=== PATIENT | male | born 1945 | race Caucasian/White ===

== ENCOUNTER 2016-12-01 08:06 | Observation (INO) | payer OTHER ==
[~2016-12-01] VITALS: Ht 182.9 cm; Wt 86.2 kg
[~2016-12-01 08:06] MED LIST: ASPIRIN CHILDRE81 MG PO; BACLOFEN10 M1 PO; DEXILANT60 M1 PO; EPIPEN 2-P0.3 MG/0.3; LIPITOR20 M2 PO; LORAZEPAM1 MG PO; LOSARTAN POTASS50 MG PO; LYRICA150 M1 PO; MELOXICAM15 MG PO; NORVASC 10MG10 MG PO; NORVASC 5MG TAB5 MG PO; OXYCODONE HCL15 M1 PO; PAXIL10 M1 PO; SUCRALFATE1 GM
--- NOTE | 2016-12-01 08:14 | ED CARDIAC/CP/PALPITATIONS ---
History of Present Illness General Chief Complaint: Chest Pain Stated Complaint: CHEST PAIN FOR A WEEK Source: patient, family Exam Limitations: no limitations Vital Signs & Intake/Output Vital Signs & Intake/Output Vital Signs Date Time Temp Pulse Resp B/P Pulse O2 O2 Flow FiO2 Ox Delivery Rate 12/02 1000 98.1 68 18 124/84 12/02 1000 98.1 68 18 124/84 ED Intake and Output 12/03 0000 12/02 1200 Intake Total 50 Output Total 400 Balance -350 Intake, Oral 50 Output, Urine 400 Patient 190 lb Weight Allergies Coded Allergies: Penicillins (RASH 12/01/16) Sulfa (Sulfonamide Antibiotics) (RASH 12/01/16) ciprofloxacin (From CIPRO) (RASH 12/01/16) Triage Note: PT BIBA FROM HOME FOR C/O CHEST PAIN X1 WEEK. PT WITH HX OF ANXIETY AND INCREASED PAIN WITH MOVEMENT. PT STATES HE NEEDS TO BE CATHETERIZED BECAUSE HE HAD A PROCEDURE LAST WEEK AND HE IS HAVING DIFFICULTY URINATING. PT HR 59 NSR. PT WAS PUT ON MEDS FOR HIS SHAKING AND STATES HE WENT TO SEE HIS PCP AND WAS TOLD TO STOP ALL HIS BP MEDS BECAUSE HIS READING WERE LOW. PT STATES HE SHOVELED SNOW YESTERDAY AND HE FELT PRESSURE IN HIS CHEST BUT THIS AM IT JUST GOT WORSE WITH HIS ANXIETY. Triage Nurses Notes Reviewed? yes Onset: Gradual Duration: intermittent (1 WEEK) Timing: no prior history Quality/Severity: moderate Location: central Radiation: no radiation Activities at Onset: none Nitro Today/Relief: 0.4 mg x 1, provided by EMS, mild relief Aspirin Today: 81 mg x 4 HPI: Patient is a 71-year-old male with history of hypertension, BPH, anxiety presenting to the emergency department with chief complaint of intermittent chest pain has been going on for the past one week. He reports that episodes come and go. He also has associated dyspnea. Denies any recent upper respiratory congestion or cough. No fevers or chills. Denies nausea or vomiting or abdominal pain. No change in bowel habits. Denies change in urinary habits. The pain worsened over the past 2 hours so he decided to come in for evaluation. He took one baby aspirin this morning when he woke up, the ambulance gave him 3 more. He was also given 1 sublingual nitroglycerin. He reports that this pain went from severe to mild since receiving medications. Denies any arm pain or jaw pain. He does report anxiety. He takes daily medication to help with anxiety. (SAE GARNER) Reconcile Medications Alfuzosin HCl (Alfuzosin HCl ER) 10 MG TAB.ER.24H 1 TAB PO DAILY UNKNOWN ( Reported) Amlodipine Besylate (Norvasc) 5 MG TABLET 1 TAB PO DAILY HEART (Reported) Atorvastatin Calcium (Lipitor) 20 MG TABLET 1 TAB PO DAILY CHOLESTEROL ( Reported) Baclofen 10 MG TABLET 1 TAB PO Q6-8 PAIN (Reported) Epinephrine (Epipen 2-Edgardo) 0.3 MG/0.3 ML AUTO.INJCT ALLERGIC REACTION (Reported ) Hydroxyzine Pamoate 50 MG CAPSULE 1 CAP PO 4 TIMES/DAY UNKNOWN (Reported) Lorazepam 0.5 MG TABLET 1 TAB PO BID PRN ANXIETY (Reported) Metoprolol Succinate 25 MG TAB 1 TAB PO DAILY HEART (Reported) Mirabegron (Myrbetriq) 25 MG TAB.ER.24H 2 TAB PO DAILY BLADDER (Reported) Mth/Me Blue/Sod Phos/Phen/Hyos (Uribel Capsule) 118-10-36 CAPSULE 1 CAP PO UNKNOWN (Reported) Oxycodone HCl 15 MG TABLET 1 TAB PO 4XDP PRN PAIN (Reported) Pregabalin (Lyrica) 150 MG CAPSULE 1 CAP PO TID NEUROPATHY (Reported) (JOSE ADAMS,JESSIE) Past History Travel History Traveled to [place] past 21 day No Medical History Any Pertinent Medical History? 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 No (SAE GARNER) Review of Systems Review of Systems Constitutional: Reports: see HPI. Comments Review of systems: See HPI, All other systems negative. Constitutional, no chills fever or weight loss HEENT: No visual changes no sore throat no congestion Cardiovascular: No orthopnea or ankle swelling Skin, no jaundice no rashes Respiratory: No cough sputum or hemoptysis GI: No nausea no vomiting : No dysuria No hematuria Muscle skeletal: no back pain, no neck pain, Neurologic: No numbness no confusion Psych: No stress anxiety or depression,. Heme/endocrine: No bruising no bleeding no polyuria or polydipsia Immunology: No splenectomy or history of AIDS (ERMELINDA GASTELUM,SAE) Physical Exam Physical Exam General Appearance: alert, awake, anxious Cardiovascular: NSR Comments: Well-developed well-nourished person in no acute distress HEENT: Pupils equally round and reactive to light and accommodation. Nose is atraumatic. Neck: Supple, no lymphadenopathy, normal range of motion without pain or tenderness Back: Nontender Cardiovascular: Regular rate and rhythms no murmurs rubs or gallops, normal JVP Respiratory: Chest nontender. No respiratory distress.breath sounds diminished to auscultation bilaterally Abdomen: Soft, nontender nondistended, no appreciable organomegaly. Normal bowel sounds. No ascites, no rebound or guarding Extremity: No edema, no calf tenderness to palpation, normal and equal pulses. Neuro: Alert oriented x3, motor sensory normal, cranial nerves II through XII grossly intact. Skin: No appreciable rash on exposed skin, skin is warm and dry. Psych: Appears anxious, extremities are tremulous Core Measures ACS in differential dx? Yes Severe Sepsis Present: No Septic Shock Present: No (SAE GARNER) Progress Differential Diagnosis: acs, UNSTABLE ANGINA, STABLE ANGINA, PANIC ATTACK, GENERALIZED ANXIETY DISORDER, PANCREATITIS, GASTRITIS, PNEUMONIA Plan of Care: Orders Procedure Date/time Status Discharge Patient 12/02 UNK Active Diagnostic Imaging: Viewed by Me: Radiology Read. Discussed w/RAD: Radiology Read. Radiology Impression: PATIENT: ADEOLA ADKINS PRESENT AGE: 71 PATIENT ACCOUNT NO: [id number] : 47 LOCATION: [facility] [place] ORDERING PHYSICIAN: SAE GASTELUM SERVICE DATE: 12/01/16 EXAM TYPE: RAD - XRY-CHEST XRAY, PA AND LATERAL EXAMINATION: XR CHEST CLINICAL INFORMATION: Chest pain. Evaluate for cardiomegaly. COMPARISON: 10/16/2016 TECHNIQUE: 2 views of the chest were obtained. FINDINGS: Lungs are well expanded and clear. No pulmonary edema, focal consolidation or pleural effusion. Cardiac silhouette is borderline enlarged. Mediastinal and hilar contours are normal. Intact appearance of the lower cervical spine fusion hardware. No acute skeletal findings. IMPRESSION: Cardiac silhouette is borderline enlarged, but this is unchanged compared to 10/16/2016. No acute cardiopulmonary abnormalities., PATIENT: ADEOLA ADKINS PRESENT AGE: 71 PATIENT ACCOUNT NO: [id number] : 47 LOCATION: [facility] [place] ORDERING PHYSICIAN: SAE GASTELUM SERVICE DATE: 12/01/16 EXAM TYPE: CAT - CTA CHEST-PULMONARY EMBOLISM EXAMINATION: CT ANGIOGRAM OF THE CHEST WITH AND WITHOUT CONTRAST (CT PULMONARY ANGIOGRAM FOR PE) CLINICAL INFORMATION: Reason for Study:
Presumptive Dx: RO PE
Signs Symptoms: SOB, CP
COMPARISON: CT chest dated 07/21/2014. TECHNIQUE: Prior to contrast administration, noncontrast localization images were obtained. Subsequently, multidetector volumetric imaging was performed from the thoracic inlet to below the diaphragms following the administration of 80 mL Omnipaque 350 intravenous contrast. No contrast reaction reported Sagittal, coronal, and MIP oblique sagittal reformatted images were obtained on the CT workstation, uploaded to PACS, and reviewed. Total exam dose-length product 600.72 mGy-cm FINDINGS: QUALITY OF STUDY/CONTRAST BOLUS: Satisfactory. PULMONARY ARTERIES: No central or segmental pulmonary emboli. THORACIC AORTA: Mild atherosclerotic disease with intimal calcification of the aortic arch. LUNG: Stable Calcified 0.3 cm nodule right upper lobe (series 5 image 21) Minor bronchial plugging also noted in the right upper lobe (series 5 image 22-23). Dependent atelectatic reticular changes bilateral lower lobes. PLEURA: No pleural effusion or pneumothorax. MEDIASTINUM: Normal heart size. No pericardial effusion. No hilar or mediastinal lymphadenopathy. No evidence of septal bowing or right heart strain. Mild esophageal distention filled with fluid. Mild esophageal wall thickness noted in the mid to distal esophagus. This represents a new finding. CHEST WALL/AXILLA: No axillary or internal mammary lymphadenopathy. OSSEOUS STRUCTURES: Degenerative changes of the thoracic spine with bridging osteophytes at a few levels demonstrating vacuum degeneration. No acute osseous abnormality. UPPER ABDOMEN: Low-attenuation right hepatic lesion measuring 0.9 cm was also seen on the prior examination compatible with a thymic cyst. It demonstrates slight interval increase in size. No reflux of contrast into the hepatic veins to suggest elevated right heart pressures. IMPRESSION: There is no CTA evidence of acute pulmonary embolism. Stable calcified right upper lobe nodule. Minor bronchial plugging. Mild wall thickness in the mid to distal esophagus with mildly distended and fluid-filled upper to mid esophagus. These represent a new finding. Clinical and endoscopic evaluation recommended. VTE: negative DICTATED BY: ENOCH FUCHS MD DATE/TIME DICTATED:12/01/161034 MED SURG RN:KIET DATE/TIME TRANSCRIBED:12/01/161034 CONFIDENTIAL, DO NOT COPY WITHOUT APPROPRIATE AUTHORIZATION. <Electronically signed in Other Vendor System> SIGNED BY: ENOCH FUCHS MD 12/01/16 1101 Initial ED EKG: SINUS RHYTHM AT 59 BPM AND A BORDERLINE t ABNORMALITIES IN THE ANTERIOR LEADS Prior EKG: unchanged Repeat EKG: unchanged Comments: Patient given sublingual nitroglycerin and aspirin en route. He reports that his pain has improved. Patient will be monitored on the quality assurance monitor body. We will assess for ACS with troponin, EKG unchanged from previous. Patient also appears very anxious. Patient feeling much better after IV Ativan. Still having mild chest pressure. A second sublingual nitroglycerin ordered. Patient informed of all lab work results and imaging study results. No pulmonary embolus. Negative troponin. Patient will be admitted for rule out ACS, observation to telemetry. Dr. Nesbitt will see the patient and admit the patient. D/W DR GARCIA AND SHE AGREES WITH PLAN. (ERMELINDA GASTELUM,SAE) Departure Departure Time of Disposition: 2 Disposition: STILL A PATIENT Condition: Stable Clinical Impression Primary Impression: Chest pain Qualifiers: Chest pain type: unspecified Qualified Code: R07.9 - Chest pain, unspecified Secondary Impressions: Dyspnea Qualifiers: Dyspnea type: unspecified Qualified Code: R06.00 - Dyspnea, unspecified Referrals: KAREN ADAMS,SAI Leahy (PCP/Family) Departure Forms: Customer Survey General Discharge Information Observation Note Spoke With: DELICIA ADAMS,LEONA Physician Advisor Notified: LISA ADAMS,CHELSEA Fernandez Place Patient In: Non-ED OBS Care Area Rationale for Observation: My rational for observation is as follows . Patient requiring serial troponins, EKGs,cardiology consultation, echocardiogram. Discharge at this time and be medically harmful. (SAE GARNER) PA/MASTER MECHANIC Co-Sign Statement Statement: ED Attending supervision documentation- [X] I saw and evaluated the patient. I have also reviewed all the pertinent lab results and diagnostic results. I agree with the findings and the plan of care as documented in the PA's/MASTER MECHANIC's documentation. [X] I have reviewed the ED Record and agree with the PA's/MASTER MECHANIC's documentation. [] Additions or exceptions (if any) to the PAs/MASTER MECHANIC's note and plan are summarized below: [] (JESSIE GARCIA MD) Critical Care Note Critical Care Note Critical Care Time: 30-74 min (SAE GARNER) Absolute Eosinophils 0.1, Absolute Basophils 0, PUBS MCHC 33.3 Departure Departure Time of Disposition: 1232 Disposition: STILL A PATIENT Condition: Stable Clinical Impression Primary Impression: Chest pain Qualifiers: Chest pain type: unspecified Qualified Code: R07.9 - Chest pain, unspecified Secondary Impressions: Dyspnea Qualifiers: Dyspnea type: unspecified Qualified Code: R06.00 - Dyspnea, unspecified Referrals: SAI JONES MD (PCP/Family) Departure Forms: Customer Survey General Discharge Information Observation Note Spoke With: LEONA NESBITT MD Physician Advisor Notified: LISA ADAMS,CHELSEA Fernandez Place Patient In: Non-ED OBS Care Area Rationale for Observation: My rational for observation is as follows . Patient requiring serial troponins, EKGs,cardiology consultation, echocardiogram. Discharge at this time and be medically harmful. (SAE GARNER) PA/MASTER MECHANIC Co-Sign Statement Statement: ED Attending supervision documentation- [X] I saw and evaluated the patient. I have also reviewed all the pertinent lab results and diagnostic results. I agree with the findings and the plan of care as documented in the PA's/MASTER MECHANIC's documentation. [X] I have reviewed the ED Record and agree with the PA's/MASTER MECHANIC's documentation. [] Additions or exceptions (if any) to the PAs/MASTER MECHANIC's note and plan are summarized below: [] (JESSIE GARCIA MD) Critical Care Note Critical Care Note Critical Care Time: 30-74 min (SAE GARNER)
--- NOTE | 2016-12-01 08:30 | NUR ---
PT STATES HE TOOK 5 BABY ASA AT HOME AND WAS GIVEN 324 ASA IN AMBULANCE PT HYPERVENTILATING AND CRYING IN ROOM PT GIVEN ATIVAN IV TO CT SCAN AT THIS TIME
--- NOTE | 2016-12-01 08:42 | NUR ---
PT TO RADIOLOGY
--- NOTE | 2016-12-01 08:42 | NUR ---
PT UNABLE TO VOID HOWEVER HE DID SAY THAT HE URINATED AT HOME JUST SOLE ASSESSOR
--- NOTE | 2016-12-01 08:53 | NUR ---
PT RETURNED FROM RADIOLOGY
[2016-12-01 09:16] LABS: ABSOLUTE BASOPHIL COUNT 0 /CUMM (0.0-0.2); ABSOLUTE EOSINOPHIL COUNT 0.1 /CUMM (0.0-0.7); ABSOLUTE GRANULOCYTE CT 1.8 /CUMM (1.4-6.5); ABSOLUTE LYMPH COUNT 1.9 /CUMM (1.2-3.4); ABSOLUTE MONOCYTE COUNT 0.5 /CUMM (0.10-0.60); BASOPHIL % 0.7 % (0.0-2.0); EOSINOPHIL % 2.8 % (0-5); GRANULOCYTE % 41.1 % (42.2-75.2); HEMATOCRIT 39.9 % (42-52); MEAN CORPUSCULAR HGB 29.5 PG (27.0-31.0); MEAN CORPUSCULAR HGB CONC 33.3 G/DL (33.0-37.0); MEAN CORPUSCULAR VOLUME 88.6 FL (80.0-94.0); MEAN PLATELET VOLUME 7.9 FL (7.4-10.4); PLATELET COUNT 219 /CUMM (130-400); RBC DISTRIBUTION WIDTH 14.4 % (11.5-14.5); RED BLOOD CELL CT 4.51 /CUMM (4.70-6.10); WHITE BLOOD CELL COUNT 4.3 /CUMM (4.8-10.8)
--- NOTE | 2016-12-01 09:20 | RADIOLOGY REPORT ---
EXAMINATION: XR CHEST CLINICAL INFORMATION: Chest pain. Evaluate for cardiomegaly. COMPARISON: 10/16/2016 TECHNIQUE: 2 views of the chest were obtained. FINDINGS: Lungs are well expanded and clear. No pulmonary edema, focal consolidation or pleural effusion. Cardiac silhouette is borderline enlarged. Mediastinal and hilar contours are normal. Intact appearance of the lower cervical spine fusion hardware. No acute skeletal findings. IMPRESSION: Cardiac silhouette is borderline enlarged, but this is unchanged compared to 10/16/2016. No acute cardiopulmonary abnormalities.
[2016-12-01 09:23] LABS: PT 11.8 SEC (9.4-12.5); PTT 31 SEC (25-37)
[2016-12-01] MEDS ORDERED: NORVASC5 M1 PO (09:25)
[2016-12-01] MEDS ORDERED: METOPROLOL SUCC25 M1 PO (09:26)
[2016-12-01] MEDS ORDERED: ALFUZOSIN HCL E10 MG PO (09:28)
[2016-12-01] MEDS ORDERED: LORAZEPAM0.5 M1 PO (09:31)
[2016-12-01] MEDS ORDERED: MYRBETRIQ25 M1 PO (09:32)
[2016-12-01] MEDS ORDERED: HYDROXYZINE PAM50 M1 PO (09:33)
[2016-12-01] MEDS ORDERED: URIBEL CAPSULE1 EACH PO (09:34)
--- NOTE | 2016-12-01 09:59 | NUR ---
PT SINUS ROXANA ON THE MONITOR HR IN THE HIGH 40'S LOW 50'S PA AWARE PT OFFERS NO COMPLAINTS AT THIS TIME
--- NOTE | 2016-12-01 10:24 | NUR ---
PT TO CT SCAN
--- NOTE | 2016-12-01 10:30 | NUR ---
PT RETURNED FROM CAT SCAN REQUESTING HIS DAILY MEDS PA MADE AWARE
--- NOTE | 2016-12-01 11:01 | NUR ---
PT RETURNED FROM CT SCAN HR 59 SINUS ON THE MONITOR REQUESTING HIS PAIN MED AND NED GASTELUM AWARE MEDS ORDRED
--- NOTE | 2016-12-01 11:01 | CT SCAN REPORT ---
EXAMINATION: CT ANGIOGRAM OF THE CHEST WITH AND WITHOUT CONTRAST (CT PULMONARY ANGIOGRAM FOR PE) CLINICAL INFORMATION: Reason for Study:
Presumptive Dx: RO PE
Signs Symptoms: SOB, CP
COMPARISON: CT chest dated 07/21/2014. TECHNIQUE: Prior to contrast administration, noncontrast localization images were obtained. Subsequently, multidetector volumetric imaging was performed from the thoracic inlet to below the diaphragms following the administration of 80 mL Omnipaque 350 intravenous contrast. No contrast reaction reported Sagittal, coronal, and MIP oblique sagittal reformatted images were obtained on the CT workstation, uploaded to PACS, and reviewed. Total exam dose-length product 600.72 mGy-cm FINDINGS: QUALITY OF STUDY/CONTRAST BOLUS: Satisfactory. PULMONARY ARTERIES: No central or segmental pulmonary emboli. THORACIC AORTA: Mild atherosclerotic disease with intimal calcification of the aortic arch. LUNG: Stable Calcified 0.3 cm nodule right upper lobe (series 5 image 21) Minor bronchial plugging also noted in the right upper lobe (series 5 image 22-23). Dependent atelectatic reticular changes bilateral lower lobes. PLEURA: No pleural effusion or pneumothorax. MEDIASTINUM: Normal heart size. No pericardial effusion. No hilar or mediastinal lymphadenopathy. No evidence of septal bowing or right heart strain. Mild esophageal distention filled with fluid. Mild esophageal wall thickness noted in the mid to distal esophagus. This represents a new finding. CHEST WALL/AXILLA: No axillary or internal mammary lymphadenopathy. OSSEOUS STRUCTURES: Degenerative changes of the thoracic spine with bridging osteophytes at a few levels demonstrating vacuum degeneration. No acute osseous abnormality. UPPER ABDOMEN: Low-attenuation right hepatic lesion measuring 0.9 cm was also seen on the prior examination compatible with a thymic cyst. It demonstrates slight interval increase in size. No reflux of contrast into the hepatic veins to suggest elevated right heart pressures. IMPRESSION: There is no CTA evidence of acute pulmonary embolism. Stable calcified right upper lobe nodule. Minor bronchial plugging. Mild wall thickness in the mid to distal esophagus with mildly distended and fluid-filled upper to mid esophagus. These represent a new finding. Clinical and endoscopic evaluation recommended. VTE: negative
--- NOTE | 2016-12-01 11:30 | NUR ---
PT RESTING TO HAVE REPEAT TROP
--- NOTE | 2016-12-01 12:34 | NUR ---
PT GIVEN NITRO SL NEW LINE ESTABLISHED PER PT REQUEST SECOND TROP DRAW AND SENT
--- NOTE | 2016-12-01 13:10 | NUR ---
PT STATES CHEST PRESSURE SUBSIDED AFTER NITRO PA MADE AWARE.
--- NOTE | 2016-12-01 13:28 | History & Physical ---
LO COLEY MD 12/01/16 1317: General Information and HPI Source of Information: patient, family Exam Limitations: no limitations History of Present Illness: Patient is a 71-year-old male with a significant past medical history occipital neuralgia, hypertension, hyperlipidemia, BPH, anxiety, depression, gastritis secondary to NSAID, history of hyponatremia, cervical neck surgery x2 at C5-C6 requiring pain management, chronic pain syndrome, presented with chief complaints of chest pain since 1 week. According to the patient, he was all right 2 weeks ago and he started having upper respiratory tract symptoms, including difficulty with breathing and runny nose for which he started to Dr. moore who prescribed him some nebulization and breathing treatment. He was okay after that. He also having bacteria, urgency for which he had rezum procedure.He was taking Tab Uribel for that. A week ago he had an episode of blacking in front of eyes and he was trying to getting up from the chair. it was associated with the chest pain. He visited to Dr. moore for it,his blood pressure was lower at that time 95/63 and he was advised to stop his propranolol at that time and also told him to stop the amlodipine, but anyhow, he continued it.yesterday he had one episode of chest pain in the center of the chest, 3/10, associated with shortness of breath, but it was subsided by its own in 15-20 minutes.today in the morning he again had similar kind of chest pain which is described as a pressure in the chest, 8-10/10, radiating to left hand, associated with tingling and numbness in the hands, shortness of the breath and palpitation. He thinks it was kind of panic attack due to the pain in the chest. He took baby aspirin and the home and told to his doctor to call 911 and come to ED at [facility]. Personal history-denies smoking, alcohol, drug abuse. He is able to do all his daily activity by his own. Allergies/Medications Allergies: Coded Allergies: Penicillins (RASH 12/01/16) Sulfa (Sulfonamide Antibiotics) (RASH 12/01/16) ciprofloxacin (From CIPRO) (RASH 12/01/16) Past History Travel History Traveled to [place] past 21 day No Medical History Neurological: OCCIPITAL NEURALGIA Cardiovascular: hypertension Respiratory: NONE Gastrointestinal: NONE Hepatic: NONE Renal: benign prost hyperplasia Musculoskeletal: NONE Psychiatric: anxiety Endocrine: NONE Blood Disorders: NONE Cancer(s): NONE RATCHET SETTER/Reproductive: NONE History of MRSA: No History of VRE: No History of CDIFF: No Surgical History Surgical History: non-contributory Past Family/Social History Psychosocial History Services at Home: None ETOH Use: denies use Illicit Drug Use: denies illicit drug use Review of Systems Review of Systems Constitutional: Denies: no symptoms, see HPI, chills, diaphoresis, fever, malaise, weakness, unexplained weight loss. EENTM: Denies: no symptoms. Cardiovascular: Reports: chest pain, palpitations. Denies: orthopena, peripheral edema. Respiratory: Reports: short of breath. Denies: cough, hemoptysis, orthopnea, sputum production, stridor, wheezing. GI: Reports: abdominal pain. Denies: bloating, constipation, diarrhea, distention, bowel incontinence, melena, nausea, bloody stool. Genitourinary: Reports: dysuria, frequency, nocturia. Musculoskeletal: Denies: back pain, gout, joint pain, joint swelling, muscle pain. Skin: Denies: no symptoms. Neurological/Psychological: Reports: anxiety, depressed. Exam & Diagnostic Data Last 24 Hrs of Vital Signs/I&O Vital Signs Date Time Temp Pulse Resp B/P Pulse O2 O2 Flow FiO2 Ox Delivery Rate 12/01 1325 60 16 99/60 96 Room Air 12/01 1302 97 12/01 1301 97.7 64 18 110/59 95 Room Air 12/01 1233 98.7 52 20 134/74 96 Room Air 12/01 1114 97.0 60 116/69 12/01 0901 98.0 60 20 113/66 98 Room Air 12/01 0816 96 12/01 0814 97.2 58 20 115/79 96 Room Air Intake & Output 12/01 1600 12/01 0800 12/01 0000 Intake Total 0 Output Total 850 Balance -850 Intake, Oral 0 Output, Urine 850 Patient 86.183 kg Weight Physical Exam General Appearance Alert, Oriented X3, Cooperative, No Acute Distress Skin No Rashes, No Breakdown HEENT Atraumatic, PERRLA, EOMI Neck Supple, No JVD Cardiovascular Normal S1, Normal S2 Lungs Clear to Auscultation, Normal Air Movement Abdomen Soft, No Tenderness Neurological Normal Speech, Strength at 5/5 X4 Ext, Normal Tone Extremities No Clubbing, No Cyanosis, No Edema Assessment/Plan Assessment: Patient is a 71-year-old male with a significant past medical history occipital neuralgia, hypertension, hyperlipidemia, BPH, anxiety, depression, gastritis secondary to NSAID, history of hyponatremia, cervical neck surgery x2 at C5-C6 requiring pain management, chronic pain syndrome, presented with chief complaints of chest pain since 1 week. Vital signs at the time of admission temperature 98.0, pulse 60, respiratory rate 20, blood pressure 113/66, SPO2 98% on room air Pertinent labs -d-dimer 466, urine green. 2-D echo 11/18/2013- Minimal Aortic sclerosis, Problem list- Acute coronary syndrome under evaluation Hypertension Hyperlipidemia BPH s/p Rezum procedure Anxiety Depression History of Gastritis secondary to NSAID use cervical neck surgery x2 at C5-C6 Chronic pain syndrome Plan- * We will admit the patient into telemetry for further cardiac monitoring * We felt to Serial EKGs/troponin to rule out acute coronary syndrome * We will give patient IV pantoprazole as he is having history of gastritis * Continue all home medication * We will follow the recommendation of Dr. Nesbitt * We will follow echocardiogram and stress test as an outpatient * We will give sublingual nitroglycerin if needed for chest pain * Vital signs every shift * Strict intake output charting * Orthostatic vitals * CODE STATUS-full code * DVT prophylaxis-ALP S/heparin * Diet-heart healthy diet As Ranked By This Provider Problem List: 1. Chest pain Qualifiers Chest pain type: unspecified Qualified Code: R07.9 - Chest pain, unspecified 2. HTN (hypertension) 3. Depression 4. HLD (hyperlipidemia) 5. Gastritis 6. BPH (benign prostatic hyperplasia) Core Measures/Miscellaneous Acute Coronary Syndrome ACS Diagnosis: No Cerebrovascular Accident CVA/TIA Diagnosis: No Congestive Heart Failure CHF Diagnosis: No Venous Thromboembolism VTE Risk Factors: Age > 40 VTE Prophylaxis Ordered Inpt: Mechanical (ALPS/TEDS) No Mech VTE prophylaxis d/t: No contraindications No VTE Pharm Prophylaxis d/t: No contraindications VTE Diagnosis: No VTE Type: NONE VTE Confirmed by (Test): NONE Severe Sepsis Severe Sepsis Present: No Septic Shock Septic Shock Present: No Miscellaneous Documentation Attending Case Discussed With: LEONA NESBITT MD Primary Care Physician: SAI JONES MD A Patient sees these Specialists Dr. Jones Level of Patient Care: Telemetry SUELLEN BETANCOURT 12/01/16 1347: General Information and HPI Allergies/Medications Home Med list Alfuzosin HCl (Alfuzosin HCl ER) 10 MG TAB.ER.24H 1 TAB PO DAILY UNKNOWN ( Reported) Amlodipine Besylate (Norvasc) 5 MG TABLET 1 TAB PO DAILY HEART (Reported) Atorvastatin Calcium (Lipitor) 20 MG TABLET 1 TAB PO DAILY CHOLESTEROL ( Reported) Baclofen 10 MG TABLET 1 TAB PO Q6-8 PAIN (Reported) Epinephrine (Epipen 2-Edgardo) 0.3 MG/0.3 ML AUTO.INJCT ALLERGIC REACTION (Reported ) Hydroxyzine Pamoate 50 MG CAPSULE 1 CAP PO 4 TIMES/DAY UNKNOWN (Reported) Lorazepam 0.5 MG TABLET 1 TAB PO BID PRN ANXIETY (Reported) Metoprolol Succinate 25 MG TAB 1 TAB PO DAILY HEART (Reported) Mirabegron (Myrbetriq) 25 MG TAB.ER.24H 2 TAB PO DAILY BLADDER (Reported) Mth/Me Blue/Sod Phos/Phen/Hyos (Uribel Capsule) 118-10-36 CAPSULE 1 CAP PO UNKNOWN (Reported) Oxycodone HCl 15 MG TABLET 1 TAB PO 4XDP PRN PAIN (Reported) Pregabalin (Lyrica) 150 MG CAPSULE 1 CAP PO TID NEUROPATHY (Reported) Resident Review Statement Resident Statement: examined this patient, discussed with internal control manager, agreed with internal control manager Other Findings: This is a 71-year-old male with past medical history significant for hypertension, hyperlipidemia, BPH status postrezum procedure anxiety, depression , gastritis on PPI, chronic neck pain secondary to cervical neck surgery requiring regular pain medications him in today with chief complain off pressure -like chest pain since last 1-2 weeks which worsened since last night. Apparently the patient was doing all right 2 weeks prior to admission he developed an upper respiratory tract infection along with shortness of breath and runny nose, which he was seen by his primary care doctor Dr. Jones was prescribed him nebulization and breathing treatment. He continued to take this treatment and one week prior to admission he had one episode of blackout when he was trying to get up from the chair, he said that this was associated with chest pain. However he says that since last night his chest pain has worsened and it was 8 out of 10, pressure-like pain, in the substernal area, nothing relieved it , however the nitroglycerin at the emergency department did help. Of note the patient's chest pain is reproducible by palpating on the sternal area and seems to be worse ongoing sternal rub. After having this chest pain today morning, he was panicking a little bit thinking that this was a heart attack and he had tingling and numbness in his left hand. He took a baby aspirin and called his doctor who asked him to call 911 and that's how he ended up coming in to [place] [facility]. he Denied any nausea, vomiting, diarrhea, constipation, paroxysmal nocturnal dyspnea, occasional palpitations vitals on presentation temperature of 98.0, pulse of 60, respiration of 20, blood pressure of 113/66, he was 96% saturating on room air. Labs white count of 4.3, H/H of 13.3/39.9, platelet count of 219, lytes within normal limit, proBNP slightly elevated at 466, urine is green in color s/p rezum procedures. First two set of troponins negative Last echocardiogram was 11/18/2013 which showed mild left ventricle size, wall thickness, systolic function with no obvious regional wall motion abnormalities normal EF 55-60%. Problem List alongwith Assessment and plan 1. Rule out Acute coronary syndrome under evaluation 2.Hypertension 3.Hyperlipidemia 4.BPH s/p Rezum procedure 5.Anxiety 6.Depression 7.History of Gastritis secondary to NSAID use 8.Chronic pain syndrome s/p Cervical disc hernitation and surgery Plan- * Continue monitor vitals every shift. * Continue to monitor on monitor and storage bin tender. * Patient chest pressure is more consistent with costochondritis as a changes with sternal rub and position, however we will continue to trend troponins and EKG. * Patient does not have significant risk factors. * We will hold off IV heparin for now. * Cardiology on board. * Continue Serial EKGs/troponin to rule out acute coronary syndrome * Continue all home medication * Please admnister sublingual nitroglycerin if needed for chest pain CODE STATUS-full code DVT prophylaxis heart healthy diet LEONA NESBITT MD 12/01/16 1853: Attending Review Statement Attending Statement Attending MD Statement: examined this patient, discuss w/resident/PA/VICE PRESIDENT NETWORK DEVELOPMENT, agreed w/resident/PA/VICE PRESIDENT NETWORK DEVELOPMENT, discussed with family, reviewed EMR data (avail), discussed with nursing, reviewed images, amended to note Attending Assessment/Plan: Agree with housestaff note above. Patient seen and examined independently. 71-year-old male with history of hypertension and hyperlipidemia presenting with chest discomfort. He notes recent episode of syncope. review of systems: No fever. No chills. No rash. No tremor. All other systems are reviewed and are noted to be negative. Physical examination: Gen: The patient is in no acute distress HEENT: Normal nose, ears, and oropharynx. Pupils equal bilaterally. Conjunctiva normal. Neck: Supple with no JVD, no masses, and no thyromegaly Lungs: Clear to auscultation with normal respiratory effort Heart: RRR, S1, S2, no murmurs. No peripheral edema, 2+ pulses in the lower extremities bilaterally Abdomen: Soft, nontender, no masses. No hepatomegaly. No splenomegaly Extremities: No clubbing or cyanosis. Normal muscle strength in the upper and lower extremities. Skin: Normal skin turgor with no skin ulcers or lesions noted. Neuro: Cranial nerves intact. Sensation intact Psych: Alert and oriented 3 with appropriate affect EKG tracing is independently reviewed, and reveals normal sinus rhythm at 59, borderline T-wave abnormality, QTC 480 CTA chest: There is no CTA evidence of acute pulmonary embolism. Stable calcified right upper lobe nodule. Minor bronchial plugging. Mild wall thickness in the mid to distal esophagus with mildly distended and fluid-filled upper to mid esophagus. These represent a new finding. Clinical and endoscopic evaluation recommended. Labs: 12/01/16 1342: Troponin I < 0.01 12/01/16 1232: Troponin I Cancelled 12/01/16 0955: Urine Color GREEN H, Urine Clarity CLEAR, Urine pH 7.5, Ur Specific [place] 1.010, Urine Protein NEG, Urine Ketones NEG, Urine Nitrite NEG, Urine Bilirubin NEG, Urine Urobilinogen 0.2, Ur Leukocyte Esterase NEG, Ur Microscopic SEDIMENT EXAMINED, Urine RBC 15-25 H, Urine Hemoglobin MOD H, Urine Glucose NEG 12/01/16 0940: Urine Total Volume Cancelled, Ur Sodium 24 Hour Cancelled, Ur Potassium 24 Hour Cancelled 12/01/16 0835: Anion Gap 10, Estimated GFR > 60, BUN/Creatinine Ratio 17.3, Glucose 87, Calcium 9.4, Total Bilirubin 1.2, AST 27, ALT 35, Alkaline Phosphatase 60, Troponin I < 0.01, Total Protein 6.8, Albumin 4.0, Globulin 2.8, Albumin/Globulin Ratio 1.4, Cholesterol 141, PT 11.8, INR 1.13, APTT 31, D-Dimer 466 H, CBC w Diff NO MAN DIFF REQ, RBC 4.51 L, MCV 88.6, MCH 29.5, RDW 14.4, MPV 7.9, Gran % 41.1 L, Lymphocytes % 44.4, Monocytes % 11.0 H, Eosinophils % 2.8, Basophils % 0.7, Absolute Granulocytes 1.8, Absolute Lymphocytes 1.9, Absolute Monocytes 0.5, Absolute Eosinophils 0.1, Absolute Basophils 0, PUBS MCHC 33.3 Assessment: * Hypertension * Hyperlipidemia * Anxiety * Chest pain, rule out acute coronary syndrome * Recent syncope Plan: * Monitor on telemetry * Sublingual as needed for further chest pain * Echocardiogram * If the patient improves clinically and rules out for myocardial infarction will plan on likely discharge tomorrow with stress test to be arranged as an outpatient.
--- NOTE | 2016-12-01 13:30 | NUR ---
BED 174-2
--- NOTE | 2016-12-01 13:34 | NUR ---
CALL PLACED TO LAB TO CHECK ON TROP. THAT WAS DRAWN AND SENT AT 1230
--- NOTE | 2016-12-01 13:56 | NUR ---
REPORT GIVEN TO LIONEL WALTONTOP HAT BODY MAKER CALLED
[2016-12-01 15:33] VITALS: BP 112/76
[2016-12-01 23:30] VITALS: BP 102/80
[2016-12-02 07:57] LABS: ABSOLUTE BASOPHIL COUNT 0 /CUMM (0.0-0.2); ABSOLUTE EOSINOPHIL COUNT 0.1 /CUMM (0.0-0.7); ABSOLUTE GRANULOCYTE CT 2.2 /CUMM (1.4-6.5); ABSOLUTE LYMPH COUNT 1.6 /CUMM (1.2-3.4); ABSOLUTE MONOCYTE COUNT 0.5 /CUMM (0.10-0.60); BASOPHIL % 0.5 % (0.0-2.0); EOSINOPHIL % 3.2 % (0-5); GRANULOCYTE % 50.2 % (42.2-75.2); HEMATOCRIT 40.6 % (42-52); MEAN CORPUSCULAR HGB 29.8 PG (27.0-31.0); MEAN CORPUSCULAR HGB CONC 33.1 G/DL (33.0-37.0); MEAN CORPUSCULAR VOLUME 90.1 FL (80.0-94.0); MEAN PLATELET VOLUME 7.9 FL (7.4-10.4); PLATELET COUNT 211 /CUMM (130-400); RBC DISTRIBUTION WIDTH 14.2 % (11.5-14.5); WHITE BLOOD CELL COUNT 4.4 /CUMM (4.8-10.8)
[2016-12-02 08:11] VITALS: BP 124/84
--- NOTE | 2016-12-02 08:18 | PN- Housestaff ---
Subjective Follow-up For: chest pain Tele-Events Since Last Visit: NSR, no overnight events Subjective: seen and examined patient, states he was have trouble sleep due to his roomate coughing. Offers no other complaints Review of Systems Constitutional: Denies: chills, diaphoresis, fever, malaise, weakness, unexplained weight loss. Cardiovascular: Denies: chest pain, edema, orthopena, palpitations, peripheral edema, syncope. Respiratory: Denies: cough, hemoptysis, orthopnea, short of breath, sputum production, stridor, wheezing. Gastrointestinal: Denies: abdominal pain, bloating, constipation, diarrhea, distention, bowel incontinence, melena, nausea, bloody stool, changes in stool, vomiting, steatorrhea. Objective Last 24 Hrs of Vital Signs/I&O Vital Signs Date Time Temp Pulse Resp B/P Pulse O2 O2 Flow FiO2 Ox Delivery Rate 12/02 1000 98.1 68 18 124/84 12/02 1000 98.1 68 18 124/84 12/02 0811 98.1 68 18 124/84 96 Room Air 12/01 2330 98.7 64 18 102/80 96 Room Air 12/01 1533 97.6 62 18 112/76 94 Room Air Intake & Output 12/02 1600 12/02 0800 12/02 0000 Intake Total 50 610 Output Total 400 401 Balance -350 209 Intake, IV 10 Intake, Oral 50 600 Output, Other 1 Output, Urine 400 400 Patient 190 lb Weight Physical Exam General Appearance: Alert, Oriented X3, Cooperative, No Acute Distress Cardiovascular: Regular Rate, Normal S1, Normal S2 Lungs: Clear to Auscultation, Normal Air Movement Abdomen: Normal Bowel Sounds, Soft, No Tenderness Extremities: No Edema Current Medications: Current Medications Sig/Jeremiah Start time Last Medication Dose Route Stop Time Status Admin Acetaminophen 650 MG ONCE ONE 12/02 0515 DC 12/02 PO 12/02 0516 0521 Amlodipine Besylate 5 MG DAILY 12/02 1000 DCD 12/02 PO 1000 Atorvastatin Calcium 20 MG DAILY@1700 12/02 1700 DCD PO Atorvastatin Calcium 20 MG ONCE ONE 12/01 1945 DC 12/01 PO 12/01 1945 2237 Baclofen 10 MG Q6P PRN 12/01 1815 DCD PO Heparin Sodium 5,000 UNIT Q8 12/01 1400 DCD 12/02 (Porcine) SC 0534 Hydroxyzine HCl 50 MG TID PRN 12/01 1815 DCD 12/02 PO 1000 Melatonin 5 MG ONCE ONE 12/01 214 DC 12/01 PO 12/01 2146 2236 Metoprolol Succinate 25 MG DAILY 12/02 1000 DCD 12/02 PO 1000 Mirabegron 25 MG DAILY 12/02 1000 DC PO Mirabegron 25 MG DAILY 12/01 2145 DCD 12/02 PO 1001 Non-Formulary 0 SEE ADMIN CRITERIA 12/01 181 DC Medication ANY Omeprazole 40 MG DAILY AC 12/02 0700 DCD 12/02 PO 0534 Oxycodone HCl 15 MG Q6P PRN 12/01 1815 DCD 12/02 PO 0811 Pantoprazole Sodium 40 MG DAILY 12/01 1700 DC 12/01 IV 1701 Patient Medication 1 ED ONE 12/02 0000 NR Teaching ED 12/02 2359 Patient Own 1 UNIT 2200 12/01 2199 DC 12/01 Medication PO 12/01 2200 223 Pregabalin 150 MG TID 12/01 2200 DCD 12/02 PO 1000 Last 24 Hrs of Lab/Ramírez Results Last 24 Hrs of Labs/Mics: Laboratory Tests 12/02/16 0645: Triglycerides 92, Cholesterol 147, LDL Cholesterol, Calc 95, HDL Cholesterol 34 L, Cholesterol/HDL Ratio 4, CBC w Diff NO MAN DIFF REQ, RBC 4.50 L, MCV 90.1, MCH 29.8, RDW 14.2, MPV 7.9, Gran % 50.2, Lymphocytes % 35.6, Monocytes % 10.5 H, Eosinophils % 3.2, Basophils % 0.5, Absolute Granulocytes 2.2, Absolute Lymphocytes 1.6, Absolute Monocytes 0.5, Absolute Eosinophils 0.1, Absolute Basophils 0, PUBS MCHC 33.1 Assessment/Plan Assessment: 71-year-old gentleman with past medical history significant for hypertension, hyperlipidemia, BPH status postrezum procedure anxiety, depression, gastritis on PPI, chronic neck pain on oxycodone with current admission for chest pain, trops neg with no new EKG changes. problem list: Hypertension Chest pain BPH Depression Gastritis Plan: ACS ruled out with negative troponin and no new EKG changes, discharge instructions given to follow-up with cardiology for risk stratification with nuclear stress test and echocardiogram. Continue metoprolol, amlodipine, statin Continue PPI Continue Myrbetriq, uribel dvt prophylaxis with sc heparin full code Problem List: 1. Chest pain 2. BPH (benign prostatic hyperplasia) 3. Gastritis Pain Ratin Pain Location: na Pain Goal: Pain 4 or less Pain Plan: current regimen Tomorrow's Labs & Rationales: none required
--- NOTE | 2016-12-02 09:56 | Patient Discharge Instructions ---
Discharge Instructions General Discharge Information You were seen/treated for: Chest pain Special Instructions: Follow up with PCP within one week of discharge. Follow up with your bulk system operator within one week for discharge, Nuclear stress test and Echocardiogram as outpatient Acute Coronary Syndrome Inclusion Criteria At DC or during hospital stay patient has or had the following: ACS DIAGNOSIS No Discharge Core Measures Meds if any: Prescribed or Continued at Discharge Meds if any: NOT Prescribed or Continued at Discharge Congestive Heart Failure Inclusion Criteria At DC or during hospital stay patient has or had the following: CHF DIAGNOSIS No Discharge Core Measures Meds if any: Prescribed or Continued at Discharge Meds if any: NOT Prescribed or Continued at Discharge Cerebrovascular accident Inclusion Criteria At DC or during hospital stay patient has or had the following: CVA/TIA Diagnosis No Discharge Core Measures Meds if any: Prescribed or Continued at Discharge Meds if any: NOT Prescribed or Continued at Discharge Venous thromboembolism Inclusion Criteria VTE Diagnosis No VTE Type NONE VTE Confirmed by (Test) NONE Discharge Core Measures - Per Current guidelines, there needs to be overlap - treatment for the first 5 days of Warfarin therapy. - If discharged on Warfarin prior to 5 days of - overlap therapy, the patient will need to be - assessed for post discharge needs including - *Post discharge parental anticoagulation - *Warfarin and/or parental anticoagulation education - *Follow up date to check INR post discharge At least 5 days overlap therapy as Inpatient No Meds if any: Prescribed or Continued at Discharge Note: Overlap Therapy is Warfarin and Anticoagulant Meds if any: NOT Prescribed or Continued at Discharge
[2016-12-02 10:00] VITALS: BP 124/84
--- NOTE | 2016-12-02 10:33 | PN- Cardiology ---
Subjective Subjective: Feeling well. No chest pain. No shortness of breath. No palpitations. No lightheadedness or dizziness. No nausea or vomiting. Objective Vital Signs and I&Os Vital Signs Date Time Temp Pulse Resp B/P Pulse O2 O2 Flow FiO2 Ox Delivery Rate 12/02 1000 98.1 68 18 124/84 12/02 1000 98.1 68 18 124/84 12/02 0811 98.1 68 18 124/84 96 Room Air 12/01 2330 98.7 64 18 102/80 96 Room Air 12/01 1533 97.6 62 18 112/76 94 Room Air 12/01 1325 60 16 99/60 96 Room Air 12/01 1302 97 12/01 1301 97.7 64 18 110/59 95 Room Air 12/01 1233 98.7 52 20 134/74 96 Room Air 12/01 1114 97.0 60 116/69 Intake & Output 12/02 1600 12/02 0800 12/02 0000 12/01 1600 12/01 0800 12/01 0000 Intake Total 50 610 0 Output Total 400 401 850 Balance -350 209 -850 Intake, IV 10 Intake, Oral 50 600 0 Output, Other 1 Output, Urine 400 400 850 Patient 190 lb Weight Physical Exam: Gen: NAD HEENT: normal Lungs: clear to auscultation, normal resp. effort Heart: RRR, S1, S2, no murmurs Abdomen: Soft, nontender, no masses Extremities: No clubbing, cyanosis, or edema. Neuro: Alert and oriented x 3, cranial nerves intact Current Medications: Current Medications Sig/Jeremiah Start time Last Medication Dose Route Stop Time Status Admin Acetaminophen 650 MG ONCE ONE 12/02 0515 DC 12/02 PO 12/02 0516 0521 Amlodipine Besylate 5 MG DAILY 12/02 1000 AC 12/02 PO 1000 Atorvastatin Calcium 20 MG DAILY@1700 12/02 1700 AC PO Atorvastatin Calcium 20 MG ONCE ONE 12/01 194 DC 12/01 PO 12/01 Baclofen 10 MG Q6P PRN 12/01 1814 AC PO Heparin Sodium 5,000 UNIT Q8 12/01 1400 AC 12/02 (Porcine) SC 0534 Hydroxyzine HCl 50 MG TID PRN 12/01 1815 AC 12/02 PO 1000 Melatonin 5 MG ONCE ONE 12/01 2144 DC 12/01 PO 02/13 2146 2236 Metoprolol Succinate 25 MG DAILY 12/02 1000 AC 12/02 PO 1000 Mirabegron 25 MG DAILY 12/02 1000 DC PO Mirabegron 25 MG DAILY 12/01 2145 AC 12/02 PO 1001 Multivitamins 1 TAB DAILY 12/02 1000 CAN PO Nitroglycerin 0 .STK-MED ONE 12/01 1219 DC SL Nitroglycerin 0.4 MG ONCE ONE 12/01 1200 DC 12/01 SL 12/01 1201 1232 Non-Formulary 0 SEE ADMIN CRITERIA 12/01 1815 DC Medication ANY Omeprazole 40 MG DAILY AC 12/02 0700 AC 12/02 PO 0534 Oxycodone HCl 15 MG Q6P PRN 12/01 1815 AC 12/02 PO 0811 Oxycodone HCl 5 MG ONCE ONE 12/01 1115 CAN PO 12/01 1116 Oxycodone HCl 10 MG ONCE ONE 12/01 1115 DC 12/01 PO 12/01 1116 1115 Oxycodone HCl 0 .STK-MED ONE 12/01 1111 DC PO Pantoprazole Sodium 40 MG DAILY 12/01 1700 DC 12/01 IV 1701 Patient Own 1 UNIT 0 12/01 2200 DC 12/01 Medication PO 12/01 2201 2236 Pregabalin 150 MG TID 12/01 2200 AC 12/02 PO 1000 Pregabalin 150 MG ONCE ONE 12/01 1115 DC 12/01 PO 12/01 1116 1115 Pregabalin 0 .STK-MED ONE 12/01 1112 DC PO Pregabalin 0 .STK-MED ONE 12/01 1111 DC PO Results Last 48 Hrs of Labs/Mics: Laboratory Tests 12/02/16 0645: Triglycerides 92, Cholesterol 147, LDL Cholesterol, Calc 95, HDL Cholesterol 34 L, Cholesterol/HDL Ratio 4, CBC w Diff NO MAN DIFF REQ, RBC 4.50 L, MCV 90.1, MCH 29.8, RDW 14.2, MPV 7.9, Gran % 50.2, Lymphocytes % 35.6, Monocytes % 10.5 H, Eosinophils % 3.2, Basophils % 0.5, Absolute Granulocytes 2.2, Absolute Lymphocytes 1.6, Absolute Monocytes 0.5, Absolute Eosinophils 0.1, Absolute Basophils 0, PUBS MCHC 33.1 02/13/17 1342: Troponin I < 0.01 12/01/16 1232: Troponin I Cancelled 12/01/16 0955: Urine Color GREEN H, Urine Clarity CLEAR, Urine pH 7.5, Ur Specific [place] 1.010, Urine Protein NEG, Urine Ketones NEG, Urine Nitrite NEG, Urine Bilirubin NEG, Urine Urobilinogen 0.2, Ur Leukocyte Esterase NEG, Ur Microscopic SEDIMENT EXAMINED, Urine RBC 15-25 H, Urine Hemoglobin MOD H, Urine Glucose NEG 12/01/16 0940: Urine Total Volume Cancelled, Ur Sodium 24 Hour Cancelled, Ur Potassium 24 Hour Cancelled 12/01/16 0835: Anion Gap 10, Estimated GFR > 60, BUN/Creatinine Ratio 17.3, Glucose 87, Calcium 9.4, Total Bilirubin 1.2, AST 27, ALT 35, Alkaline Phosphatase 60, Troponin I < 0.01, Total Protein 6.8, Albumin 4.0, Globulin 2.8, Albumin/Globulin Ratio 1.4, Cholesterol 141, PT 11.8, INR 1.13, APTT 31, D-Dimer 466 H, CBC w Diff NO MAN DIFF REQ, RBC 4.51 L, MCV 88.6, MCH 29.5, RDW 14.4, MPV 7.9, Gran % 41.1 L, Lymphocytes % 44.4, Monocytes % 11.0 H, Eosinophils % 2.8, Basophils % 0.7, Absolute Granulocytes 1.8, Absolute Lymphocytes 1.9, Absolute Monocytes 0.5, Absolute Eosinophils 0.1, Absolute Basophils 0, PUBS MCHC 33.3 Assessment/Plan Assessment/Plan Assessment: * Hypertension * Hyperlipidemia * Anxiety * Chest pain, ruled out for [place] * Recent syncope Plan: * Discharge to home. * Nuclear stress test as outpatient. * Echocardiogram as outpatient if not completed in hospital prior to discharge. * Follow up in the office after testing. * Call with further symptoms. * Monitor on telemetry * Sublingual as needed for further chest pain * Echocardiogram * If the patient improves clinically and rules out for myocardial infarction will plan on likely discharge tomorrow with stress test to be arranged as an outpatient. Continue telemetry? No
== END 2016-12-02 13:13 ==
LOC: ENRESERVTM → ENRESERVDT → ERH 08:06 → ENPENDDIS 12:32 → ERHI 12:32 → 1NO 14:56
PROVIDERS: Emergency Medicine; Internal Medicine; ADMIT Internal Medicine Cardiovascular Disease
DX: R07.9 Chest pain, unspecified (principal); I10 Essential (primary) hypertension; E78.5 Hyperlipidemia, unspecified; F41.9 Anxiety disorder, unspecified; N40.0 Benign prostatic hyperplasia without lower urinary tract symptoms; F32.9 Major depressive disorder, single episode, unspecified; G89.4 Chronic pain syndrome; M54.81 Occipital neuralgia; K29.70 Gastritis, unspecified, without bleeding
CPT/HCPCS: 2000; 6020; 81001; 93005; 93010; 96372; 96374; 96375; G0378; J1644; J2720; J3490

== ENCOUNTER 2016-12-17 08:20 | Emergency (ER) | payer OTHER ==
[~2016-12-17] VITALS: Ht 182.9 cm; Wt 74.8 kg
[~2016-12-17 08:20] MED LIST changes: +ALFUZOSIN HCL E10 MG PO; +HYDROXYZINE PAM50 M1 PO; +LORAZEPAM0.5 M1 PO; +METOPROLOL SUCC25 M1 PO; +MYRBETRIQ25 M1 PO; +NORVASC5 M1 PO; +URIBEL CAPSULE1 EACH PO
[2016-12-17 10:05] LABS: ABSOLUTE BASOPHIL COUNT 0 /CUMM (0.0-0.2); ABSOLUTE EOSINOPHIL COUNT 0 /CUMM (0.0-0.7); ABSOLUTE GRANULOCYTE CT 4.2 /CUMM (1.4-6.5); ABSOLUTE LYMPH COUNT 1.2 /CUMM (1.2-3.4); ABSOLUTE MONOCYTE COUNT 0.8 /CUMM (0.10-0.60); BASOPHIL % 0.2 % (0.0-2.0); EOSINOPHIL % 0.1 % (0-5); GRANULOCYTE % 67.7 % (42.2-75.2); HEMATOCRIT 37.5 % (42-52); MEAN CORPUSCULAR HGB 29.9 PG (27.0-31.0); MEAN CORPUSCULAR VOLUME 87.9 FL (80.0-94.0); MEAN PLATELET VOLUME 7.1 FL (7.4-10.4); PLATELET COUNT 225 /CUMM (130-400); RBC DISTRIBUTION WIDTH 12.9 % (11.5-14.5); RED BLOOD CELL CT 4.26 /CUMM (4.70-6.10); WHITE BLOOD CELL COUNT 6.2 /CUMM (4.8-10.8)
--- NOTE | 2016-12-17 11:55 | ED GI/GU/ABDOMINAL COMPLAINT ---
History of Present Illness General Chief Complaint: Abdominal Pain/Flank Pain Stated Complaint: ABD PAIN Source: patient, family, old records, EMS Exam Limitations: no limitations Vital Signs & Intake/Output Vital Signs & Intake/Output Vital Signs Date Time Temp Pulse Resp B/P Pulse O2 O2 Flow FiO2 Ox Delivery Rate 12/17 1339 97.8 12/17 1226 97.8 70 18 139/83 97 Room Air 12/17 0830 97 Room Air 12/17 0826 96.2 66 16 166/89 98 Room Air Allergies Coded Allergies: Penicillins (RASH 12/01/16) Sulfa (Sulfonamide Antibiotics) (RASH 12/01/16) Reconcile Medications Alfuzosin HCl (Alfuzosin HCl ER) 10 MG TAB.ER.24H 1 TAB PO DAILY UNKNOWN ( Reported) Amlodipine Besylate (Norvasc) 5 MG TABLET 1 TAB PO DAILY HEART (Reported) Atorvastatin Calcium (Lipitor) 20 MG TABLET 1 TAB PO DAILY CHOLESTEROL ( Reported) Baclofen 10 MG TABLET 1 TAB PO Q6-8 PAIN (Reported) Epinephrine (Epipen 2-Edgardo) 0.3 MG/0.3 ML AUTO.INJCT ALLERGIC REACTION (Reported ) Famotidine (Pepcid) 20 MG TABLET 1 TAB PO BID gastritis Hydroxyzine Pamoate 50 MG CAPSULE 1 CAP PO 4 TIMES/DAY UNKNOWN (Reported) Hyoscyamine Sulfate (Levsin-Sl) 0.125 MG TAB.SUBL 1-2 TAB SL Q4P PRN abdominal pain Lorazepam 0.5 MG TABLET 1 TAB PO BID PRN ANXIETY (Reported) Metoclopramide HCl (Reglan) 10 MG TABLET 1 TAB PO 4 TIMES/DAY PRN reflux 30 minutes before meals and bedtime Metoprolol Succinate 25 MG TAB 1 TAB PO DAILY HEART (Reported) Mirabegron (Myrbetriq) 25 MG TAB.ER.24H 2 TAB PO DAILY BLADDER (Reported) Mth/Me Blue/Sod Phos/Phen/Hyos (Uribel Capsule) 118-10-36 CAPSULE 1 CAP PO UNKNOWN (Reported) Oxycodone HCl 15 MG TABLET 1 TAB PO 4XDP PRN PAIN (Reported) Pregabalin (Lyrica) 150 MG CAPSULE 1 CAP PO TID NEUROPATHY (Reported) Triage Note: 71 Y/O MALE BIBA FROM HOME FOR EVAL OF ABDOMINAL PAIN AND PENILE PAIN; ONSET LAST WEEK AND WORSENING OVERNIGHT. STATES HE HAD A "SURGERY ON MY URINARY TRACK AND IT LED TO A PROSTATE INFECTION". STATES HE SAW HIS UROLOGIST THURSDAY AND WAS TOLD HE MAY HAVE A UTI BUT WAS NOT PLACED ON ANY NEW MEDICATIONS - RECENTLY FINISHED COURSE OF CIPRO. PT ANXIOUS ON ARRIVAL; EASILY REDIRECTABLE. 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 TEARFUL. ALSO REPORTS NAUSEA AND DRY HEAVING. TOOK VISTARIL OVERNIGHT AND OXYCODONE AT 0500 WITH NO RELIEF. RECEIVED 4MG ZOFRAN EN ROUTE TO ED. AWAITING EVAL. Triage Nurses Notes Reviewed? yes Onset: Just prior to arrival Duration: hour(s):, constant, continues in ED Timing: recent history Quality/Severity: aching, severe, vomiting Location: generalized abdomen Radiation: epigastric Activities at Onset: emotional stress, rest Prior Abdominal Problems: similar symptoms Past Sexual History: Unobtainable at this time Modifying Factors: Worsens With: eating. Associated Symptoms: abdominal pain, loss of appetite, nausea/vomiting HPI: Patient reports one month prior to admission losing 30 pounds secondary to loss of appetite. He has had multiple emergency department visits for chest pain penile pain secondary to urologic procedure. Several hours prior to admission he awoke with generalized abdominal discomfort described as burning radiating to his throat associated with acid taste anxiety severe quality with nausea vomiting. Reports being under severe financial stress and family discord. Past History Travel History Traveled to [place] past 21 day No Medical History Any Pertinent Medical History? see below for history Neurological: OCCIPITAL NEURALGIA EENT: NONE Cardiovascular: hypertension Respiratory: NONE Gastrointestinal: peptic ulcer disease Hepatic: NONE Renal: benign prost hyperplasia Musculoskeletal: NONE Psychiatric: anxiety Endocrine: NONE Blood Disorders: NONE Cancer(s): NONE OTM CONSULTANT/Reproductive: NONE History of MRSA: No History of VRE: No History of CDIFF: No Surgical History Surgical History: non-contributory Psychosocial History Who do you live with Family Services at Home None What is your primary language [place] Tobacco Use: Quit >30 days ago Family History Hx Contributory? No Review of Systems Review of Systems Constitutional: Reports: no symptoms. EENTM: Reports: no symptoms. Respiratory: Reports: no symptoms. Cardiovascular: Reports: no symptoms. GI: Reports: nausea, vomiting. Genitourinary: Reports: no symptoms. Musculoskeletal: Reports: no symptoms. Skin: Reports: no symptoms. Neurological/Psychological: Reports: see HPI, anxiety, confusion, emotional problems. Hematologic/Endocrine: Reports: no symptoms. Immunologic/Allergic: Reports: no symptoms. All Other Systems: Reviewed and Negative Physical Exam Physical Exam General Appearance: well developed/nourished, alert, awake, anxious, severe distress Head: atraumatic, normal appearance Eyes: Bilateral: normal appearance, PERRL, EOMI, normal inspection. Ears, Nose, Throat, Mouth: hearing grossly normal, moist mucous membrane Neck: normal inspection, supple, full range of motion, normal alignment Respiratory: normal breath sounds, chest non-tender, no respiratory distress, quiet respiration, lungs clear Cardiovascular: regular rate/rhythm, normal peripheral pulses, norml femoral pulses equa Peripheral Pulses: 4+ carotid (R), 4+ carotid (L) Gastrointestinal: normal bowel sounds, soft, non-tender, no organomegaly Male Genitals: normal genitalia Back: normal inspection, normal range of motion Extremities: normal range of motion, no ligament instability Neurologic/Psych: no motor/sensory deficits, awake, alert, oriented x 3, normal gait, normal mood/affect Skin: intact, normal color, warm/dry Core Measures ACS in differential dx? No Severe Sepsis Present: No Septic Shock Present: No Progress Differential Diagnosis: gastritis, PUD/GERD, UTI/pyelo Plan of Care: Orders Procedure Date/time Status Regular Diet 12/17 L Active Add-on Test (ER Only) 12/17 1112 Active ED CRISIS PSYCH CONSULT 12/17 1035 Active MAGNESIUM 12/17 0950 Complete URINALYSIS 12/17 0912 Complete LIPASE 12/17 0912 Complete COMPREHENSIVE METABOLIC PANEL 12/17 0912 Complete CBC WITHOUT DIFFERENTIAL 12/17 0912 Complete Current Medications Sig/Jeremiah Start time Last Medication Dose Stop Time Status Admin Potassium Chloride 40 MEQ ONCE ONE 12/17 1145 CAN (Klor) 12/17 1146 Laboratory Tests 12/17/16 0950: Anion Gap 9, Estimated GFR > 60, BUN/Creatinine Ratio 10.0, Glucose 100 H, Calcium 8.4, Magnesium 1.3 L, Total Bilirubin 1.9 H, AST 42, ALT 40, Alkaline Phosphatase 56, Total Protein 6.4, Albumin 3.9, Globulin 2.5, Albumin/Globulin Ratio 1.6, Lipase 152, CBC w Diff NO MAN DIFF REQ, RBC 4.26 L, MCV 87.9, MCH 29.9, RDW 12.9, MPV 7.1 L, Gran % 67.7, Lymphocytes % 19.3 L, Monocytes % 12.7 H, Eosinophils % 0.1, Basophils % 0.2, Absolute Granulocytes 4.2, Absolute Lymphocytes 1.2, Absolute Monocytes 0.8 H, Absolute Eosinophils 0, Absolute Basophils 0, PUBS MCHC 34.0, Urine Color YEL, Urine Clarity CLEAR, Urine pH 7.0, Ur Specific [place] 1.010, Urine Protein NEG, Urine Ketones 40 H, Urine Nitrite NEG, Urine Bilirubin NEG, Urine Urobilinogen 0.2, Ur Leukocyte Esterase NEG, Ur Microscopic SEDIMENT EXAMINED, Urine RBC 3-5, Urine WBC 1-3 H, Ur Epithelial Cells RARE, Urine Bacteria RARE H, Urine Mucus RARE, Urine Hemoglobin MOD H, Urine Glucose NEG Initial ED EKG: none Departure Departure Time of Disposition: 1307 Disposition: HOME OR SELF CARE Condition: Stable Clinical Impression Primary Impression: Gastritis and duodenitis Secondary Impressions: GERD (gastroesophageal reflux disease) Qualifiers: Esophagitis presence: with esophagitis Qualified Code: K21.0 - Gastro-esophageal reflux disease with esophagitis Panic anxiety syndrome Referrals: KAREN ADAMS,SAI Leahy (PCP/Family) VICKIE ADAMS,MARLON Cloud Call for GI follow up or with your postal service window clerk Additional Instructions: Follow up with the recommendations of the garment worker Departure Forms: Customer Survey General Discharge Information Prescriptions: Current Visit Scripts Metoclopramide HCl (Reglan) 1 TAB PO 4 TIMES/DAY PRN reflux #30 TAB 30 minutes before meals and bedtime Famotidine (Pepcid) 1 TAB PO BID #60 TAB Ref 1 Hyoscyamine Sulfate (Levsin-Sl) 1-2 TAB SL Q4P PRN abdominal pain #60 TAB
--- NOTE | 2016-12-17 11:57 | ED PSYCH CRISIS CONSULTATION ---
Crisis Consult Basic Assessment Date of Consult: 12/17/16 Responsible Person/Accompanied By: EDUARDO Insurance Authorization: Insurance #1: Insurance name: [facility] MEDIC[facility] Phone number: Policy number: [id number] Group number: [id number] Authorization number: ED Provider: Patient's ED Provider: RADHA ROBERTS MD Primary Care Physician: Patient's PCP: SAI JONES MD PCP's Current Psychiatrist: Kaylene Slade Chief Complaint: Abdominal Pain/Flank Pain Patient's Quote: "Im having fake heart attacks" Present Illness: Pt is is a 71 year old male with limited psychiatric history, he is seen outpatient by Dr. Slade in [place]. He is prescribed Vistaril and Lunesta, he reports not being able to tolerate the Vistaril and does not want to take it any longer. He reports symptoms of panic, stress, and anxiety. 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 He is the sole provider for 2 adult children who have never launched and one of his daughters has a child, who the patient states he "has been the only father figure in his granddaughters life, because her father was one of the first school teachers in [place] to be arrested for having sex with a minor, and hasnt had contact with her since she was 2 years old". Pt reports his daughters are in their 40s one lives with him, the other lives in his ex wives home with her daughter, his exwife has recently and he has been trying to pay for both homes, as his daughter is on SSDI. He was in the ER last month for panic like symptoms, but has never been admitted inpatient for psych issues. He reports being more forgetful recently and is worried about how he will continue to carry on like this at his age. Pt denies si/hi/ah/vh and has no drug or etoh history, aside from being prescribed oxycodone for neck fusions and bone spur on his C3. Patient's Address: [address] [place] [address] Other CELL Who Do You Live With? Family Family/Informants Interviewed: Spoke with Dr. Slade, she can see patient tomorrow and does not think he is admittable today, agrees with IOP referral. Allergies - Coded Allergies: Penicillins (RASH 12/01/16) Sulfa (Sulfonamide Antibiotics) (RASH 12/01/16) Current Medications - Scheduled Medications Alfuzosin HCl (Alfuzosin HCl ER) 10 MG TAB.ER.24H 1 TAB PO DAILY UNKNOWN ( Reported) Entered as Reported by ERICK BARBA on 12/01/16927 Last Taken: 12/16/16 Amlodipine Besylate (Norvasc) 5 MG TABLET 1 TAB PO DAILY HEART 30 Days ( Reported) Entered as Reported by ERICK BARBA on 12/01/16924 Atorvastatin Calcium (Lipitor) 20 MG TABLET 1 TAB PO DAILY CHOLESTEROL 30 Days (Reported) Entered as Reported by NICKI PRADHAN on 06/19/142044 Last Taken: 12/16/16 Baclofen 10 MG TABLET 1 TAB PO Q6-8 PAIN (Reported) Entered as Reported by NICKI PRADHAN on 06/19/142046 Famotidine (Pepcid) 20 MG TABLET 1 TAB PO BID gastritis #60 TAB Prescribed by RADHA ROBERTS MD on 12/17/16 Hydroxyzine Pamoate 50 MG CAPSULE 1 CAP PO 4 TIMES/DAY UNKNOWN #120 (Reported ) Entered as Reported by ERICK BARBA on 12/01/16932 Metoprolol Succinate 25 MG TAB 1 TAB PO DAILY HEART #30 (Reported) Entered as Reported by ERICK BARBA on 12/01/16 09 Mirabegron (Myrbetriq) 25 MG TAB.ER.24H 2 TAB PO DAILY BLADDER (Reported) Entered as Reported by ERICK BARBA on 12/01/16931 Pregabalin (Lyrica) 150 MG CAPSULE 1 CAP PO TID NEUROPATHY 30 Days (Reported) Entered as Reported by NICKI PRADHAN on 06/19/142046 Last Taken: 12/16/16 Scheduled PRN Medications Hyoscyamine Sulfate (Levsin-Sl) 0.125 MG TAB.SUBL 1-2 TAB SL Q4P PRN abdominal pain #60 TAB Prescribed by RADHA ROBERTS MD on 12/17/16 Lorazepam 0.5 MG TABLET 1 TAB PO BID PRN ANXIETY #60 (Reported) Entered as Reported by ERICK BARBA on 12/01/16 0931 Metoclopramide HCl (Reglan) 10 MG TABLET 1 TAB PO 4 TIMES/DAY PRN reflux #30 TAB Prescribed by RADHA ROBERTS MD on 12/17/16 Oxycodone HCl 15 MG TABLET 1 TAB PO 4XDP PRN PAIN (Reported) Entered as Reported by NICKI PRADHAN on 06/19/142044 Last Taken: 12/16/16 Miscellaneous Medications Epinephrine (Epipen 2-Edgardo) 0.3 MG/0.3 ML AUTO.INJCT ALLERGIC REACTION (Reported ) Entered as Reported by NICKI PRADHAN on 06/19/142051 Last Taken: At an unknown date and time Health System/Ut Blue/Sod Phos/Phen/Hyos (Uribel Capsule) 118-10-36 CAPSULE 1 CAP PO UNKNOWN #21 (Reported) Entered as Reported by ERICK BARBA on 12/01/16 0934 Laboratory Results: Laboratory Tests 12/17/16 0950: Anion Gap 9, Estimated GFR > 60, BUN/Creatinine Ratio 10.0, Glucose 100 H, Calcium 8.4, Magnesium 1.3 L, Total Bilirubin 1.9 H, AST 42, ALT 40, Alkaline Phosphatase 56, Total Protein 6.4, Albumin 3.9, Globulin 2.5, Albumin/Globulin Ratio 1.6, Lipase 152, CBC w Diff NO MAN DIFF REQ, RBC 4.26 L, MCV 87.9, MCH 29.9, RDW 12.9, MPV 7.1 L, Gran % 67.7, Lymphocytes % 19.3 L, Monocytes % 12.7 H, Eosinophils % 0.1, Basophils % 0.2, Absolute Granulocytes 4.2, Absolute Lymphocytes 1.2, Absolute Monocytes 0.8 H, Absolute Eosinophils 0, Absolute Basophils 0, PUBS MCHC 34.0, Urine Color YEL, Urine Clarity CLEAR, Urine pH 7.0, Ur Specific [place] 1.010, Urine Protein NEG, Urine Ketones 40 H, Urine Nitrite NEG, Urine Bilirubin NEG, Urine Urobilinogen 0.2, Ur Leukocyte Esterase NEG, Ur Microscopic SEDIMENT EXAMINED, Urine RBC 3-5, Urine WBC 1-3 H, Ur Epithelial Cells RARE, Urine Bacteria RARE H, Urine Mucus RARE, Urine Hemoglobin MOD H, Urine Glucose NEG Past History Past Medical History Neurological: OCCIPITAL NEURALGIA EENT: NONE Cardiovascular: hypertension Respiratory: NONE Gastrointestinal: NONE Hepatic: NONE Renal: benign prost hyperplasia Musculoskeletal: NONE Psychiatric: anxiety Endocrine: NONE Blood Disorders: NONE Cancer(s): NONE TRACK GREASER/Reproductive: NONE Past Surgical History Surgical History: non-contributory Psychosocial History Strengths/Capabilities: capable of caregiving for family, employed 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 Current Mental Status Mental Status Orientation: Person, Place, Situation Affect: Anxious, Variable Speech: WNL Neuro-vegetative: Concentration Poor, Helpless, Sleep Disturbance Appearance Appearance- Dress/Hygiene: Well groomed, wearing a baseball cap in hospital attire. Behaviors Thought Process: Flight of Ideas Thought Content: Somatic, WNL Memory: Short term memory Insight: Fair SI/HI Risk Assessment Past Suicidal Ideation/Attempts No Current Suicidal Ideation/Att No Past Homicidal Ideation/Att: No Current Homicidal Ideation/Attempts No Degree of Intent: None Risk Factors: age (under 24/over 65), high anxiety/distress, male, limited support Lethality Ratin (mild) PTSD Checklist PTSD Done? patient declined ED Management Sitter: Yes Restraints: No DSM5/PS Stressors/Medical Prob Diagnosis' (DSM 5, Stressors, Medical): Unspecified Anxiety D/O F41.9 Current GAF: 38 Departure Disposition Psych Medical Clearance Date: 12/17/16 Medically Cleared at: 1130 Time Started: 1130 Time Ended: 1230 Psychiatrist Consulted: Marcin Hernandez MD Date Disposition Established: 12/17/16 Time Disposition Established: 1230 Plan for Disposition - Modality: IOP Facility: [facility] Follow-up Appt Date: 12/19/16 Follow-Up Appt Time: 1030 Contact: [facility] Telephone: [phone] Rationale for Disposition: Consulted with Dr. Hernandez, pt meets criteria for IOP, and can follow up with current provider tomorrow at 11. Pt denies si/hi/ah/vh. Pt will be discharged brother will pick him up. Referrals KAREN ADAMS,SAI Leahy (PCP/Family)
[2016-12-17 12:26] VITALS: BP 139/83
[2016-12-17] MEDS ORDERED: REGLAN10 M1 PO (13:11)
[2016-12-17] MEDS ORDERED: PEPCID20 M1 PO (13:11)
[2016-12-17] MEDS ORDERED: LEVSIN-SL0.125 MG SL (13:11)
== END 2016-12-17 13:40 ==
LOC: ERH 08:20
PROVIDERS: Emergency Medicine
DX: K29.70 Gastritis, unspecified, without bleeding (principal); K29.80 Duodenitis without bleeding; K21.9 Gastro-esophageal reflux disease without esophagitis; F41.0 Panic disorder [episodic paroxysmal anxiety]
CPT/HCPCS: 81001; 96361; 96365; 96375; G0463; J2765

== ENCOUNTER → 2017-04-22 | Day surgery (SDC) | payer OTHER ==
[~2017-04-22] VITALS: Ht 182.9 cm; Wt 83.9 kg
[~2017-04-22] MED LIST changes: +AMITIZA24 MC1 PO; +ATORVASTATIN CA20 M1 PO; +BUSPIRONE HCL15 M1 PO; +LEVSIN-SL0.125 MG SL; +MOVANTIK25 M1; +PEPCID20 M1 PO; +REGLAN10 M1 PO
--- NOTE | 2017-04-22 09:14 | Operative Report ---
Operative/Inv Procedure Report Surgery Date: 04/22/17 Name of Procedure: Cataract extraction lens implantation right eye Pre-Operative Diagnosis: Age-related cataract right eye 20/50 vision Post-Operative Diagnosis: Same Estimated Blood Loss: none Surgeon/Vocational Education Teacher: CATHI ADAMS,VERONIKA Jiménez Anesthesia: local monitored anesthesi Complications: None Operative/Procedure Note Note: The patient was brought to the operating room standard monitoring equipment was attached the patient was prepped and draped in the usual fashion for intraocular surgery. A lid speculum was placed to retract the lids. The case was begun by making a temporal incision with a 2.4 mm keratome. The eye was stabilized with a Torres ring during this incision. 1 mL of non-preserved lidocaine was introduced into the anterior chamber to provide anesthesia. The anterior chamber was then filled and deepened with viscoelastic. A curvilinear capsulorrhexis was achieved using a 30-gauge needle and is a cystotome and capsulorrhexis was finished using a Utrata forceps. A second or paracentesis incision was made temporally with a 1 mm MVR blade. The lens was then hydrodissected with balanced salt solution and found to be rotatable. The lens was emulsified using phacoemulsification and a modified four-quadrant cracking technique. The residual cortical material was removed using automated irrigation and aspiration and as much of the anterior capsular rim was cleaned as well as possible. The posterior capsule was cleaned first with the automated machine on a low setting and then manually with a Jay squeegee. The capsular bag was deepened with viscoelastic. The lens a [id number] 19.5 Diopter placed into the bag under direct visualization and rotated so that the haptics were at 12 and 6:00. Viscoelastic was then removed from the eye by flushing it out and then by automated irrigation and aspiration. The eye was pressurized to a normal tone. 1/10 of a cc of vancomycin solution was introduced into the anterior chamber to provide antibiotic prophylaxis. The wounds were sealed by hydrating the stroma adjacent to them and the eye was left at a proper tone after the wounds were checked and found not to be leaking. The lid speculum was removed from the orbit. Antibiotic and steroid drops were placed on the eye and then the eye was shielded. Monitoring equipment was removed from the patient and the patient was removed from the operative suite to the holding area. The patient tolerated the procedure well and will be seen in the office tomorrow.
== END ==
LOC: STS 02:20
DX: H25.9 Unspecified age-related cataract (principal); E78.00 Pure hypercholesterolemia, unspecified; I10 Essential (primary) hypertension; G47.33 Obstructive sleep apnea (adult) (pediatric)
CPT/HCPCS: J2250; V2632